=== PATIENT | male | born 1945 | race Caucasian/White ===

== ENCOUNTER → 2018-02-03 | Outpatient (CLI) | payer OTHER | LOC: BHFA 10:30 | PROVIDERS: ATTEND Internal Medicine Cardiovascular Disease | DX: I25.10 Atherosclerotic heart disease of native coronary artery without angina pectoris (principal); R06.02 Shortness of breath ==

== ENCOUNTER → 2018-04-04 | Outpatient (CLI) | payer OTHER | LOC: BHFA 08:30 | PROVIDERS: ATTEND Internal Medicine Interventional Cardiology | DX: I25.10 Atherosclerotic heart disease of native coronary artery without angina pectoris (principal); R06.02 Shortness of breath | CPT/HCPCS: 78452; 93017; 93306; A9500; J2785 ==

== ENCOUNTER 2019-01-09 13:52 | Observation (INO) | payer OTHER ==
[2019-01-09] MEDS ORDERED: diphenhydrAMINE 25 MG CAP PO ONE (13:59)
[2019-01-09] MEDS ORDERED: DIAZEPAM 5 MG TAB PO ONE (13:59)
[2019-01-09] MEDS ORDERED: ASPIRIN EC 325 MG TAB PO ONE (13:59)
[2019-01-09] MEDS ORDERED: FAMOTIDINE 20 MG TAB PO ONE (13:59)
[2019-01-09] MEDS ORDERED: NS 1,000 ML IV ONE (13:59)
--- NOTE | 2019-01-09 14:17 | PDPROPOC ---
Sedation Plan of Care Sedation Plan of Care: mental status noted, patient educated of risks, benefits , alternatives, patient can tolerate sedation ASA Classification: ASA 2 Planned drugs: fentanyl, midazolam Mallampati Score: Class 2 Mallampati Reference Image: Patient passed 3-3-2 rule?: Yes
--- NOTE | 2019-01-09 14:18 | PDHPUP ---
History & Physical Update H&P update statement: This history and physical update is based on an assessment of the patient which was completed after admission or registration (within 24 hours), but prior to the surgery/procedure. Risks and benefits of left heart catheterization discussed in detail. Patient agreeable to pursue. Consents have been signed for both left heart catheterization, percutaneous coronary mention and sedation. H&P update: H&P reviewed & patient examined, no change in patient's condition since H&P completed
[2019-01-09 14:45] LABS: PLATELET COUNT 183 10^3/uL (150-400)
[2019-01-09 14:55] LABS: INR 1.03 (0.83-1.16); PROTIME(PATIENT) 13.1 SEC (12.0-15.0)
[2019-01-09] MEDS ORDERED: IOPAMIDOL (ISOVUE-370) 150 ML BTL IV ONE (15:31)
[2019-01-09] MEDS ORDERED: LIDOCAINE 1% 300 MG/30 ML SDV ONE (15:31)
[2019-01-09] MEDS ORDERED: fentaNYL 100 MCG/2 ML INJ ONE ×2 (15:31→16:35)
[2019-01-09] MEDS ORDERED: MIDAZOLAM 2 MG/2 ML VIAL ONE ×2 (15:31→16:35)
[2019-01-09] MEDS ORDERED: ONDANSETRON 4 MG/2 ML VIAL IVP PRN (17:35)
[2019-01-09] MEDS ORDERED: OXYCODONE/APAP 5/325 TAB PO PRN (17:35)
[2019-01-09] MEDS ORDERED: HYDROCODONE/APAP 5/325 TAB PO PRN (17:35)
[2019-01-09] MEDS ORDERED: NITROGLYCERIN 0.4 MG BTL SL PRN (17:35)
[2019-01-09] MEDS ORDERED: ATROPINE SULFATE 1 MG/10 ML SYR IVP PRN (17:35)
--- NOTE | 2019-01-09 17:38 | CPIP ---
[f rep st] INVASIVE CARDIAC PROCEDURE DATE OF PROCEDURE: 01/09/2019 PROCEDURE PERFORMED: Diagnostic left heart catheterization. INDICATION FOR LEFT HEART CATHETERIZATION: New onset of exertional chest pain, shortness of breath, nausea, and diaphoresis in the setting of known coronary artery disease. DESCRIPTION OF PROCEDURE: After informed consent was obtained, the patient was brought to the [facility] catheterization lab where he was prepped and draped in sterile fashion. Using 1% lidocaine, the [facility] groin was anesthetized. Using modified Seldinger technique, a 6-Malagasy catheter was placed into the right common femoral artery without complications. AL1 catheter was used to take images of the l eft coronary anatomy in multiple projections. AL1 was exchanged over a guidewire for a JR4 catheter. JR4 catheter was used to take a single image of the right coronary artery. JR4 catheter was exchan ged over a guidewire for angled pigtail catheter. Angled pigtail catheter was used to cross the aort ic valve. Left ventriculogram was performed. LVEDP was assessed. Gradient was assessed on pull-eliane k. Angled pigtail catheter was removed over guidewire without complications. FINDINGS: 1. Left main normal size and caliber, bifurcates into left anterior descending and left circumflex c oronary artery. There is no evidence of coronary disease in the left main. 2. Left anterior descending artery is a large caliber vessel that wraps around the apex. There is p atent stents through the proximal and mid LAD with no evidence stenosis. There is a jailed 1st diago nal branch with ostial stenosis, which is unchanged compared to previous left heart catheterization p er report in 2015. 3. Circumflex vessel demonstrates mild luminal irregularities with no evidence of flow-limiting dise ase. There is a large 1st obtuse marginal branch with patent stents in the proximal to midportion of the vessel that are widely patent. 4. The right coronary artery is chronic totally occluded in the proximal segment, which is unchanged compared to previous left heart catheterization. HEMODYNAMICS: LVEF 60% to 65%. LVEDP 27 mmHg. Aortic valve gradient none. CONCLUSION: 1. Chronic total occlusion of right coronary artery unchanged compared to previous left heart cathet erization per report from December 2015. 2. Patent stents to the proximal and mid left anterior descending. 3. Patent stents to the proximal mid obtuse marginal branch. 4. Mild luminal irregularities within the circumflex vessel. 5. No evidence of hemodynamically significant stenosis that is repairable. 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 We will plan on optimal medical therapy. Manual pressure will be held. No Angio-Seal was deployed. /[id number]/MODL
--- NOTE | 2019-01-09 19:57 | PDCARPN ---
Cardiology Progress Note Assessment/Plan: Assessment: Chest pain Coronary disease Hypertension Plan: -observation overnight after left heart catheterization this evening. -continue outpatient cardiac medications -bedrest x6 hours post left heart catheterization -post left heart catheterization instructions discussed with patient and family -will plan to reassess in morning plan for discharge home. 01/09/19 19:57 Subjective: Kayden is a pleasant 73-year-old gentleman with a known history of coronary disease with chronic total occlusion of right coronary artery, history of PCI to the LAD and obtuse marginal branch who developed new onset of chest pain and shortness of breath yesterday. He was admitted overnight at [facility]. Troponins were negative x2. He was chest pain-free. He presented to my office today for further evaluation. He describes an episode of chest pain walking to his car for from convenience store. He described left sided chest pain radiating to the axilla associated with shortness of breath. He took 2 nitroglycerin and aspirin. He states this relieved his symptoms. When he returned to [place] to his daughter's house, he developed acute onset of chest pain, shortness of breath, nausea and diaphoresis with climbing a flight of stairs prompting his admission to a [place]. With his known heart disease and new onset of symptoms, recommended diagnostic left heart catheterization to be performed this afternoon. Left heart catheterization demonstrated no new flow-limiting coronary disease. Right coronary artery remains chronic total occlusion proximal segment. Patent stents to the LAD. Patent stents to the obtuse marginal branch in no new flow- limiting disease. Left ventriculogram demonstrated normal left ventricular function. He tolerated the procedure well. Manual pressure to right groin site. Hemostasis obtained at my last postoperative evaluation. He was resting Reviewed/Discussed With: family Objective: Vital Signs (8 Hrs) Resp BP Pulse Ox 01/09/19 19:20 21 H 91 L 01/09/19 19:16 10 L 138/62 H 95 01/09/19 19:15 5 L 94 01/09/19 19:10 10 L 94 01/09/19 19:05 11 L 94 01/09/19 19:01 10 L 124/76 H 93 01/09/19 19:00 12 93 01/09/19 18:55 13 94 01/09/19 18:50 10 L 96 01/09/19 18:46 18 121/78 H 95 01/09/19 18:45 11 L 95 01/09/19 18:40 9 L 96 01/09/19 18:35 15 94 01/09/19 18:31 19 139/76 H 92 01/09/19 18:30 21 H 94 01/09/19 18:25 17 95 01/09/19 18:20 15 92 01/09/19 18:16 14 120/79 94 01/09/19 18:15 11 L 93 01/09/19 18:10 10 L 91 L 01/09/19 18:05 13 95 01/09/19 18:01 15 130/73 H 93 01/09/19 18:00 19 92 01/09/19 17:55 10 L 91 L 01/09/19 17:50 15 95 01/09/19 17:46 10 L 135/81 H 92 01/09/19 17:45 15 92 01/09/19 17:43 22 H 143/73 H 94 01/09/19 17:42 16 92 01/09/19 15:50 14 94 01/09/19 15:46 27 H 166/77 H 94 01/09/19 15:45 21 H 93 01/09/19 15:40 26 H 94 01/09/19 15:35 28 H 92 01/09/19 15:31 19 137/74 H 94 01/09/19 15:30 23 H 93 01/09/19 15:25 17 94 01/09/19 15:20 24 H 92 01/09/19 15:16 11 L 153/73 H 94 01/09/19 15:15 20 92 01/09/19 15:10 16 95 01/09/19 15:05 13 95 01/09/19 15:01 16 149/75 H 94 01/09/19 15:00 17 93 01/09/19 14:55 19 94 01/09/19 14:50 14 94 01/09/19 14:46 23 H 143/76 H 92 01/09/19 14:45 21 H 92 01/09/19 14:40 18 93 01/09/19 14:35 19 93 Intake/Output (24 Hrs) 01/08/19 01/09/19 01/10/19 05:59 05:59 05:59 Intake Total 350 Balance 350 Intake: IV Intake (ml) 350 Other: Weight 125.2 kg Result Diagrams: 01/09/19 14:30 01/09/19 14:30 - Physical Exam Constitutional: obese Ears, Nose, Mouth, Throat: moist mucous membranes Cardiovascular: regular rate and rhythm, no murmurs, no rubs, no gallops Peripheral Pulses: 1+: dorsalis-pedis (R), dorsalis-pedis (L), 2+: carotid (R), carotid (L), femoral (R), femoral (L) Respiratory: clear to auscultate bilat Gastrointestinal: normoactive bowel sounds Neurologic: AAOx3, CN II-XII grossly intact Psychiatric: cooperative ICD10 Worksheet Patient Problems: Problems Problem Status Onset CAD (coronary artery disease) Acute - ICD10 Problem Qualifiers (1) CAD (coronary artery disease)
[2019-01-10 04:38] LABS: PLATELET COUNT 160 10^3/uL (150-400)
--- NOTE | 2019-01-10 05:47 | CPEKG ---
Test Reason : OPEN Blood Pressure : / mmHG Vent. Rate : 057 BPM Atrial Rate : 058 BPM P-R Int : 215 ms QRS Dur : 072 ms QT Int : 412 ms P-R-T Axes : 024 003 -07 degrees QTc Int : 401 ms Sinus rhythm Borderline prolonged CO interval Early R wave transition Confirmed by Emilie Phoenix ([id number]) on 01/10/2019 5:47:08 AM Referred By: Jorge Costello Confirmed By:Emilie Phoenix
[2019-01-10] MEDS ORDERED: LEVOTHYROXINE 112 MCG TAB PO SCH (06:00)
[2019-01-10 07:25] VITALS: BP 161/74
[2019-01-10] MEDS ORDERED: ASPIRIN 81 MG CHEWABLE TAB PO SCH (09:00)
[2019-01-10] MEDS ORDERED: LOSARTAN/HCTZ 50/12.5 1 TAB PO SCH (09:00)
[2019-01-10] MEDS ORDERED: ROSUVASTATIN CALCIUM 40 MG TAB PO SCH (09:00)
[2019-01-10] MEDS ORDERED: NEBIVOLOL HCL 5 MG TAB PO SCH (09:00)
--- NOTE | 2019-01-10 12:15 | GDS ---
[f rep st] DISCHARGE SUMMARY INDICATION FOR ADMISSION: New onset of exertional chest pain, shortness of breath, dyspnea, nausea, and diaphoresis. HOSPITAL COURSE: The patient is a pleasant 73-year-old gentleman with a known history of coronary ar heide disease with previous PCI to the LAD, obtuse marginal branch, and a chronic total occlusion of t he right coronary artery that was unsuccessfully attempted to be opened in 2016, who was in his usual state of health until 2 days prior to admission, when he got began to develop left sided chest press ure radiating to his left axilla. These symptoms worsened with climbing a flight of steps at his clau ghter's house. He was admitted overnight the day prior to his admission to [facility] at [facility]. He was on a heparin drip. He had no further episodes of chest pain. His ECG and tropo nins were unremarkable. He was discharged from [facility] and presented to my office. In reviewing symptoms, I recommended he undergo diagnostic left heart catheterization. Left heart catheterization performed late yesterday afternoon demonstrated no progression of coronary artery disease with patent stents to the LAD and obtuse marginal branch. 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 Left ventriculogram demonstrates normal left ventricular fun ction. Given the late hour into the evening and requiring observation post left heart catheterization, neto greenberg was admitted overnight for observation. This morning, he was feeling well. He had no new complaints. Right groin site demonstrated no evide nce of hematoma or ecchymosis. Lab work remained stable. PLAN: 1. Patient will be discharged home on current medications. 2. Patient will follow up in the office in 1 to 2 weeks. /[id number]/MODL
== END 2019-01-10 10:37 | disposition home or self-care (01) ==
LOC: FCATH 13:52 → F2W 17:36
PROVIDERS: ADMIT Internal Medicine Cardiovascular Disease; ATTEND Internal Medicine Cardiovascular Disease
DX: I25.119 Atherosclerotic heart disease of native coronary artery with unspecified angina pectoris (principal); Z95.5 Presence of coronary angioplasty implant and graft; I25.82 Chronic total occlusion of coronary artery; I10 Essential (primary) hypertension
CPT/HCPCS: 93005; 93458; G0378; G0379; J1200; J1644; J2250; J3010; Q9967